=== PATIENT | female | born 1950 | race Caucasian/White ===

== ENCOUNTER 2016-12-07 10:33 | Inpatient (IN) ==
[2016-12-07] MEDS ORDERED: NS 500 ML IV ONE ×2 (11:24→13:36)
--- NOTE | 2016-12-07 11:28 | PROVIDER DOCUMENTATION ---
HPI-General Adult - General Chief Complaint: Stroke-Like Symptoms Stated Complaint: STROKE LIKE SYMPTOMS Time Seen by Provider: 12/07/16 11:13 Source: patient Allergies/Adverse Reactions: Patient Allergies Allergy/AdvReac Type Severity Reaction Status Date / Time doxycycline Allergy Severe hypertensio Verified 12/22/13 18:16 n influenza virus vaccine, Allergy Severe HIVES Verified 12/22/13 18:16 specific [Influenza Virus Vacc,Specific] Penicillins Allergy Severe HIVES; Verified 12/22/13 18:16 DIARRHEA; NAUSEA shellfish derived Allergy Intermediate VOMITING Verified 12/25/13 12:06 Home Medications: Home Medication List Medication Instructions Recorded Confirmed Last Taken Type Hydrocodone/Acetaminophen [Lortab 1 each PO BID PRN 04/03/13 04/18/15 2 Days Ago History 7.5-500 Tablet] Aspirin 325 mg PO DAILY #0 tablet 04/04/13 04/18/15 04/18/15 05:00 Rx Cholecalciferol (Vitamin D3) 1,000 unit PO BID 12/22/13 04/18/15 2 Days Ago History [Vitamin D] Gabapentin 100 mg PO DAILY PRN 12/22/13 04/18/15 04/17/15 21:00 History Insulin Glargine [Lantus] 20 unit SUBQ QHS 04/18/15 04/18/15 04/17/15 21:00 History - History of Present Illness -Gen Adult Nature of Presenting Problems: Pt. is 66 yof that presents with c/o sudden onset of right sided weakness around 0630 this morning. Pt. presents with right sided facial drooping and some slight aphasia. Pt. reports she has a known anyerism at the [place]. Pt. states she hasn't been seen for that in years. Pt. also reporting a severe BYRNE. Family at bedside states that this happened once before and the patient was diagnosed with a complex migraine and bells palsy. Pt. denies any other symptoms. Location of Pain/Injury: reports: head. denies: face, mouth, neck, chest, upper extremity, hand(s), abdomen, back, pelvis, genitalia, lower extremity, feet, upper body, lower body, generalized Pain Radiation: reports: no radiation Quality of Pain: reports: aching. denies: burning, cramping, dull, fullness, indigestion, pressure, sharp, stabbing, tearing, throbbing, tightness Severity: reports: severe Onset/Duration: reports: abrupt, this morning Timing: reports: still present, constant. denies: improving, gone now, resolved prior to arrival, intermittent, changing over time, getting worse Context/Activities at Onset: reports: none. denies: recent emotional stress, recent physical stress, recent trauma history, possible bad food, cold exposure , out of country travel Modifying Factors: improves with: nothing Associated Symptoms: reports: headaches, sensory/motor loss, weakness. denies: anxiety, arm pain, back/neck pain, chest pain, constipation, cough, diaphoresis , diarrhea, dizziness, EENT symptoms, fatigue, fever/chills, genitourinary problems, heartburn, joint pain, loss of appetite, malaise, muscle aches, sinus congestion/drainage, nausea, rash, seizure, shortness of breath, pain with inspiration, swelling/mass in abdomen, syncope, vomiting, trouble walking Similar Symptoms Previously?: No Recently seen or treated by another doctor?: No Review of Systems - Adult - REVIEW OF SYSTEMS - ADULT Constitutional: reports: see HPI. denies: chills, fever, fatique Eyes: reports: see HPI. denies: dry eyes, blurred vision, double vision, redness Ears, Nose, Mouth & Throat: reports: see HPI. denies: ear pain, hearing loss, nose pain, loose teeth, mouth swelling, throat pain, throat swelling Cardiovascular: reports: see HPI. denies: chest pain, irregular heart rate, palpitations, syncope Respiratory: reports: see HPI. denies: chronic cough, cough, dyspnea on exertion, pleurisy, shortness of breath, wheezing Gastrointestinal: reports: see HPI. denies: abdominal pain, hematemesis, constipation, diarrhea, nausea, vomiting Genitourinary: reports: see HPI. denies: dysuria, frequency, hematuria, hesitency, urgency Musculoskeletal: reports: see HPI. denies: bone pain, back pain, joint pain, muscle aches, neck pain Integumentary: reports: see HPI. denies: hives, itching, rash, skin thickening Neurological: reports: see HPI, headache/migraines, other (Right sided weakness) . denies: ataxia, seizure, syncope, tremors Psychiatric: reports: see HPI. denies: anxiety, depression, emotional problems , insomnia, panic attacks, suicidal thoughts Past History - Adult - PAST MEDICAL HISTORY-ADULT Review of Records: reports: Old Records Reviewed, Nursing Assessment Review, Medications Reviewed, Social history reviewed & non-contributory. Cardiovascular: reports: HTN Neurological: reports: Parkinson's Endocrine/Immune: reports: Diabetes Other Conditions: reports: other (chiari malformation of the brain stem) - PRIOR SURGERIES/PROCEDURES Surgical/Procedure History: reports: BTL, back/neck (back surgery) - IMMUNIZATION STATUS Childhood Immunizations: See Nurse Assessment Flu Vaccine: See Nurse Assessment - FAMILY HISTORY Family History: reviewed, not pertinent - SOCIAL HISTORY Smoking: denies Physical Exam-General - PHYSICAL EXAM-ADULT Initial Vital Signs Reviewed: Yes - CONSTITUTIONAL General Appearance: alert, moderate distress, obese. negative: thin, anxious, lethargic, slow to respond, obtunded, combative - EYES Eyes: pink conjunctivae, other (Right pupil sluggish to react). negative: conjuctival exudate, scleral icterus, subconjunctival hemorrhage - HEAD, EARS, NOSE, MOUTH & THROAT HENMT: normocephalic/atraumatic, moist mucous membranes. negative: angioedema, TM obscurred by cerumen, maxillary tenderness - NECK Neck: non-tender, full range of motion, supple, normal inspection. negative: lymphadenopathy, trachial deviation, thyromegaly - RESPIRATORY Respiratory: lungs clear, normal breath sounds. negative: crackles, rales, rhonchi, stridor, wheezing - CARDIOVASCULAR Cardiovascular: regular rate, rhythm, no edema, no JVD, no murmur, tachycardia. negative: extra beats, friction rub, irregularly irregular - GASTROINTESTINAL (ABDOMEN) Abdominal Exam: normal bowel sounds, non tender, soft. negative: distended, guarding, rigid, rebound, tenderness, hernia, mass - LYMPHATIC Lymphatic: no adenopathy. negative: axilla node tender, cervical node tenderness - MUSCULOSKELETAL Back Exam: normal inspection. negative: no CVA tenderness, no vertebral tenderness, ecchymosis, swelling, vertebral tenderness Extremity: normal range of motion, non-tender, normal inspection. negative: deformity, erythema, inflammation, swelling, tenderness Peripheral Pulses: radial (R): 2+, radial (L): 2+ - SKIN Integumentary: normal color, normal turgor, warm/dry. negative: cyanosis, diaphoresis, ecchymosis, erythema, jaundice, mottled, pallor, petechiae, purpura , rash, swelling, tenderness - NEUROLOGIC Neurologic: facial droop, motor weakness. negative: no motor/sensory deficits, aphasia, sensory deficit - PSYCHIATRIC Psych/Mental Status: normal mood/affect, normal thought content, normal thought process, oriented x 3. negative: anxious, paranoid, tearful Progress - PLAN OF CARE/RESULTS Progress/Plan/Lab Results: Vital Signs - 8 hr 12/07/16 10:48 Temperature 98.7 F Pulse Rate 100 H Respiratory Rate 20 Blood Pressure 172/71 O2 Sat by Pulse Oximetry 97 Orders Category Date Time Status Saline Loc NOW Care 12/07/16 11:14 Active HEAD W/O CONTRAST [CT] Stat Exams 12/07/16 11:04 Taken CBC WITH ELECTRONIC DIFF [HEME] Stat Lab 12/07/16 11:14 Uncollected COMPREHENSIVE METABOLIC PANEL [CHEM] Stat Lab 12/07/16 11:14 Uncollected URINALYSIS W/POSS RFLX CULT [URINALYSIS] Stat Lab 12/07/16 11:14 Uncollected Discussed patient with Dr. Gonzáles after she spoke to Dr. Harper regarding the patient. Dr. Gonzáles has evaluated the patient. Result Diagrams: 12/07/16 11:20 12/07/16 11:20 - CT/MRI 1 CT Study: Head CT Results: NAD ([facility]) 2 CT Study: Angiogram, Head CT Results: NAD ([facility]) - CONSULTS/PCP/HOSPITALIST Notification #1 *Consult/PCP/Hospitalist*: Dr. Jones Time Discussed: 14:03 Reason/Comments: Admission Consult Disposition: Will see in ED, Admit Departure - Departure Time of Disposition Decision: 13:42 DIAGNOSIS: Palsy, Weakness, Ischemic stroke Disposition: ADMITTED INPATIENT 09 Certified Medical Emergency: Emergent Condition: Stable Referrals and Follow-Ups: William Johnson MD [Primary Care Provider] - Attestation - Physician/ KARINA Attestation Patient care was provided by Advanced Practice Provider:: Yes Advanced Practice Provider:: Noemi Kc Advanced Practice Provider documentation review:: The Mid-level provider documentation, treatment plan and medical decision making was reviewed by the physician who agrees with all treatment and medical decision making by the MLP. The physician spent face to face time with patient:: Yes Advanced Practice Provider documentation review:: The physician spent face to face time with this patient and agrees with all MLP documentation, treatment, and medical decision making by the MLP. See provider notes for further information.
[2016-12-07 11:36] LABS: MANUAL DIFF NEEDED? NO
[2016-12-07 11:40] LABS: BASO% 0.2 % (0.0-0.8); EOS# 0.01 X1000 (0.0-0.7); EOS% 0.1 % (0.0-10.0); HEMATOCRIT 41.4 % (37.0-47.0); HEMOGLOBIN 13.9 g/dL (12.0-16.0); IMM GRAN# 0.06 X1000 (0.0-0.04); IMM GRAN% 0.3 % (0.0-0.5); LYMPH# 2.83 X1000 (1.2-3.4); LYMPH% 15.2 % (20.5-51.1); MCH 30.4 PG (27-31); MCHC 33.6 g/dL (33-37); MCV 90.6 FL (81-99); MONO# 1.21 X1000 (0.11-0.59); MONO% 6.5 % (1.7-9.3); MPV 11.1 FL (7.4-10.4); NEUT% 77.7 % (42.2-75.2); PLT 366 X1000 (130-400); RBC 4.57 XMIL (4.2-5.4)
[2016-12-07 11:59] LABS: AGAP 13; ALBUMIN 4.3 g/dL (3.5-5.0); ALKALINE PHOSPHATASE 103 U/L (32-104); BUN 8 mg/dL (8-22); CALCIUM 9.7 mg/dL (8.8-10.2); CHLORIDE 99 mmol/L (98-107); COSMO 278; GOT 22 U/L (10-30); GPT 14 U/L (10-36); SODIUM 139 mmol/L (136-145); TCO2 27 mmol/L (25-35); TOTAL BILIRUBIN 0.42 mg/dL (0.20-1.00); TOTAL PROTEIN 8.7 g/dL (6.3-8.3)
--- NOTE | 2016-12-07 12:00 | Diag Imaging Result Document ---
PROCEDURE NAME: HEAD W/O CONTRAST - 12/07/2016 CT BRAIN WITHOUT CONTRAST: COMPARISON: Compared to 12/22/2013. FINDINGS: No parenchymal hemorrhage. No epidural or subdural hematoma. No subarachnoid hemorrhage. No mass identified on this noncontrasted exam. Minimal ventricular prominence similar to the prior exam. No sinus opacification. No air fluid levels. IMPRESSION: No hemorrhage. Negative brain CT without contrast. A preliminary report was given at 11:19 a.m.
--- NOTE | 2016-12-07 12:26 | EKG Report ---
Test Performed on : 12/07/2016 10:40:49 AM Test Reason : AMS Blood Pressure : / mmHG Vent. Rate : 100 BPM Atrial Rate : 100 BPM P-R Int : 156 ms QRS Dur : 078 ms QT Int : 358 ms P-R-T Axes : 052 -22 032 degrees QTc Int : 461 ms Normal sinus rhythm. Possible Left atrial enlargement Left ventricular hypertrophy Abnormal ECG When compared with ECG of 18-APR-2015 15:28, No significant change was found Unconfirmed Result
[2016-12-07 12:27] LABS: INR 0.99; PROTIME 10.4 Seconds (9.2-11.7); PTT 28.2 Seconds (22.0-36.0)
[2016-12-07 12:37] LABS: ALLEN TEST YES; BE 2.6 mmoll (-3.0-3.0); BLOOD TYPE ARTERIAL; DRAW SITE R RADIAL; METHB 1.8 % (0.0-1.5); O2(CT) 16.6 mL/dL (15.0-23.0); PCO2(98.6) 45 mmHg (35-45); PO2(98.6) 66 mmHg (60-100); SAMPLE BLOOD; SAO2 97.3 % (95.0-100.0); THB 12.6 g/dL (11.5-17.4)
[2016-12-07 12:38] LABS: MODALITY ROOM AIR
--- NOTE | 2016-12-07 12:46 | Diag Imaging Result Document ---
PROCEDURE NAME: ANGIOGRAM/HEAD - 12/07/2016 CT ANGIOGRAM BRAIN WITH CONTRAST. TECHNIQUE: MIP images obtained. FINDINGS: There is normal filling of the middle and anterior cerebral arteries. The distal internal carotid arteries are poorly seen. Normal flow in the basilar artery with normal filling of the posterior cerebral arteries. No stenosis. No aneurysm. No other abnormality. No occlusion. IMPRESSION: No stenosis, occlusion, or aneurysm identified. A preliminary report was given at 12:21 p.m. MTDD
--- NOTE | 2016-12-07 12:47 | Diag Imaging Result Document ---
PROCEDURE NAME: CHEST-PORTABLE - 12/07/2016 PORTABLE CHEST X-RAY: COMPARISON: 11/24/2015. FINDINGS: The lungs are normally expanded and clear. Heart size and mediastinal contours are normal. No pneumothorax or pleural effusion. IMPRESSION: Negative exam.
[2016-12-07 13:34] LABS: URINE CULTURE NEEDED? NO; URINE MICRO REVIEW NEEDED? NO; URINE SOURCE CLEAN CATCH
[2016-12-07] MEDS ORDERED: ZOFRAN IV ONE (13:40)
[2016-12-07] MEDS ORDERED: MORPHINE IV ONE (13:40)
[2016-12-07 13:49] LABS: UR AMPHETAMINES QUAL NONE DETECTED (NONE DETECT); UR BARBITUATES QUAL NONE DETECTED (NONE DETECT); UR BENZODIAZEPIN QUAL NONE DETECTED (NONE DETECT); UR CANNABINOIDS QUAL NONE DETECTED (NONE DETECT); UR COCAINE QUAL NONE DETECTED (NONE DETECT); UR METHADONE QUAL NONE DETECTED (NONE DETECT); UR OPIATES QUAL NONE DETECTED (NONE DETECT); UR OXYCODONE QUAL NONE DETECTED (NONE DETECT); UR PCP QUAL NONE DETECTED (NONE DETECT)
[2016-12-07 13:53] LABS: BILIRUBIN URINE NEGATIVE (NEGATIVE); BLOOD URINE NEGATIVE (NEGATIVE); COLOR STRAW; GLUCOSE URINE NEGATIVE (NEGATIVE); LEUKOCYTES URINE NEGATIVE (NEGATIVE); NITRITE URINE NEGATIVE (NEGATIVE); PROTEIN URINE NEGATIVE (NEGATIVE); SP GRAVITY URINE 1.016; TURBIDITY URINE CLEAR (CLEAR); UROBILINOGEN URINE NORMAL (NORMAL)
[2016-12-07 13:55] LABS: UR EPITHELIAL CELLS <10 /HPF (<10); URINE BACTERIA NEGATIVE /HPF; URINE RBC <10 /HPF (<10); URINE WBC <10 /HPF (<10)
[2016-12-07] MEDS ORDERED: ASPIRIN PO STA (14:05)
[2016-12-07 14:33] LABS: HDL 60 mg/dL (45-65); LDL 101 mg/dL; TRIGLYCERIDES 58 mg/dL (35-135); VLDL 12 mg/dL
[2016-12-07 14:34] LABS: HEMOGLOBIN A1C 9.2 % (4.8-6.0)
--- NOTE | 2016-12-07 15:55 | Diag Imaging Result Document ---
PROCEDURE NAME: MRI BRAIN W W/O CONTRAST - 12/07/2016 MRI BRAIN WITH AND WITHOUT. TECHNIQUE: Axial and sagittal images obtained in multiple sequences. These are followed by postcontrasted axial and coronal images. FINDINGS: No recent infarct. No significant microvascular ischemic changes. There are only tiny areas of increased signal on the T2 and FLAIR-weighted images. No distinct mass or midline shift. No enhancing lesion on the postcontrasted images. No hydrocephalus. No epidural or subdural fluid collection. The cerebellum is slightly low lying. No other abnormality. IMPRESSION: 1. No recent infarct. 2. Chiari malformation. A preliminary report was given at 3:20 p.m.
--- NOTE | 2016-12-07 15:58 | Diag Imaging Result Document ---
PROCEDURE NAME: MRA BRAIN W/O CONTRAST - 12/07/2016 MR ANGIOGRAPHY OF THE [place]. MIP IMAGES OBTAINED. FINDINGS: There is normal flow in each distal internal carotid artery. Normal flow in the anterior and middle cerebral arteries bilaterally. Normal flow in the basilar artery with filling of both posterior cerebral arteries. There is a posterior communicating artery on the left. This is a normal variant. No occlusion. No aneurysm. There may be narrowing in the proximal right posterior cerebral artery. No other abnormality. IMPRESSION: 1. No occlusion or aneurysm. 2. Artifact versus stenosis in the proximal right posterior cerebral artery. Preliminary report was given at 3:24 p.m.
--- NOTE | 2016-12-07 16:02 | Diag Imaging Result Document ---
PROCEDURE NAME: MRA NECK W/CONT - 12/07/2016 MR ANGIOGRAPHY OF THE NECK. MIP IMAGES OBTAINED. FINDINGS: There is normal flow in the right common carotid artery. No stenosis. Mild narrowing in the internal carotid artery bulb. Stenosis is less than 40%. Normal flow in the right vertebral artery. There is normal flow in the left common carotid artery. No stenosis. Normal flow in the internal carotid artery. No stenosis. Normal flow in the left vertebral artery. IMPRESSION: Mild stenosis in the proximal right internal carotid artery of less than 40%. A preliminary report was given at 3:29 p.m.
--- NOTE | 2016-12-07 16:45 | HISTORY AND PHYSICAL ---
PRIMARY CARE PROVIDER: Dr. William Johnson. CHIEF COMPLAINT: Right-sided weakness starting at 6:30 this morning. HISTORY OF PRESENT ILLNESS: Ms. Billings is a 66-year-old, female with a history of questionable CVA with right-sided weakness, diabetes mellitus type 2, hypertension, Chiari malformation of the brain stem, Parkinson's and untreated breast cancer. States that she is chronically weak on the right but this time she noticed that she was drawing up on the right, her face was drooping. Ambulance was called. She was brought to the ER where she had a NIH stroke scale or 10. She had right droop, dysarthria and mild expressive aphasia. Currently she is what she feels like is back to her baseline. She is trace weak on the right. She has no dysarthria. She is oriented and follow all commands. There is no asymmetry of the face. She does state that she has a mild headache along the right side of her head. She states she has headaches every day on the right side of her head. She did say that she woke up a few times through the night feeling like her heart was beating hard. She would see white splotches in her visual field which she states has improved and has some mild blurriness in her peripheral vision. It is unknown when she was last seen normal as there was no family at the bedside. She states for the last 2 days she has noticed some dizzy spells, lightheaded spells, feeling like her vision was turning black and she would have a ringing and a roaring in her ears. She states she took her blood pressure this morning and it was in the one-teens. She denies any vomiting but does have some nausea. She has numbness and tingling in her hands and feet. She states that she has had some back pain that will cause drawing up of her feet. Denies fever or chills. PAST MEDICAL HISTORY: CVA with right-sided residual, diabetes mellitus type 2, hypertension, Chiari malformation of the brainstem ,Parkinson's, untreated breast cancer, complex migraines, daily migraines on the right and a history of Valencia's palsy. SURGICAL HISTORY: Tubal ligation and back surgery. SOCIAL HISTORY: Denies tobacco, alcohol or illicit drug use. Lives at home with her and daughter and grandson. FAMILY HISTORY: Father had an FL. Mother had lung cancer. REVIEW OF SYSTEMS: Fourteen point review of systems were complete and all were negative except for those mentioned in the above HPI. ALLERGIES: Doxycycline, the influenza virus, penicillin and shellfish. HOME MEDICATIONS: Aspirin 325 mg p.o. daily. Vitamin D 3 a 1000 units p.o. twice daily. Neurontin 100 mg p.o. daily. Lortab 7.5-500 one tab p.o. twice daily as needed. Lantus 20 units subcutaneous nightly but these medications have not been updated. LABORATORY DATA: White blood cells 18,000, hemoglobin 13, hematocrit 41, platelet count 366,000. INR 0.99, PTT is 28.2. ABGs pH 7.4, pCO2 45, PO2 66, bicarb 26, base excess 2.6, saturation 93%. Lactate 0.5. This is on room air. Sodium 139, potassium 4.0, BUN 8, creatinine 0.5, glucose 139. Hemoglobin A1c is 9.2. Total bilirubin 0.42, AST 22, ALT 14. CK 126. Troponin less than 0.01. Triglycerides 58, total cholesterol 173, LDL 101. Urinalysis negative. Urine drug screen negative. Alcohol level negative. IMAGING: Had a head CT, no hemorrhage. Head CTA no stenosis, occlusion or aneurysm. Chest x-ray negative for any acute findings. EKG normal sinus rhythm. QTc is 461. Rate is 100. MRA of the neck prelim shows mild stenosis with right proximal internal carotid artery about 40%. MRI of the brain, with and without contrast showed no recent infarct and a Chiari malformation on the brainstem. The MRA of the brain showed no occlusion but it was artifact versus stenosis in the proximal right posterior cerebral artery. PHYSICAL EXAMINATION: VITAL SIGNS: Temperature 98.7 degrees, heart rate 88, respiratory rate 14, blood pressure 162/79, O2 saturation 96% on room air. 150 pounds, 5 feet 1 inch tall, BMI 28.3. GENERAL: Hattie Billings is a 66-year-old, female. She is in no acute distress and is currently able answer all questions appropriately. HEENT: Atraumatic, normocephalic. Her pupils were equal and reactive. Her mucous membranes were dry. Extraocular movements were intact. Peripheral vision was blurred. NECK: No JVD or carotid bruits noted. CARDIOVASCULAR: S1, S2. Regular rate and rhythm. No rubs, gallops, or murmurs. ABDOMEN: Soft, nontender, nondistended. Positive bowel sounds x4. PULMONARY: Clear to auscultate. Bilateral breath sounds. No accessory muscle use or work of breathing noted. EXTREMITIES: No edema noted. +2 dorsalis and radial pulses. Right-sided weakness noted about a 4-1/2 out of 5. NEURO: A and O x4. Moves all extremities with right-sided weakness 4-1/2 out of 5. ASSESSMENT AND PLAN: 1. TIA versus cerebrovascular accident versus complex migraine. She already has right-sided weakness prior to arrival as normal for her but on admission she did have some pronator drift on the right. She had a right facial droop. She had dysarthria and some disorientation. Her head CT and CTA did not show any acute abnormalities. Her MRI MRA of the brain, and of the neck also did not show any acute abnormalities. There was only some mild stenosis of the proximal right internal cerebral artery about 40% and there was some artifact versus stenosis in the proximal right posterior cerebral artery. Dr. Kelly has been consulted. Echocardiogram has been ordered. She will be placed on IV fluid hydration given the fact that she has received IV dye and will do frequent neuro checks. She was viewed by Dr. Dakotah Harper via telecommunication assessment and was recommended for her to stay overnight. She has been given aspirin and will be started on aspirin and a statin. 2. History of Chiari malformation. Apparently there is no change in this. 3. History of right chronic migraines. 4. Diabetes mellitus type 2. It is uncontrolled. Her hemoglobin A1c is 9.2. We will do sliding scale insulin, pattern blood glucoses and prior to discharge will do dietary nutritional consult for improving her knowledge of diabetic diet. 5. Hypertension. Will allow for some permissive hypertension to improve her cerebral perfusion. 6. Parkinson's. No obvious signs of tremor: 7. Breast cancer that is untreated. She states that she did not have this treated due to a sick but was seen by Dr. Clayton who recommended chemo and radiation. Dictated by NARCISA Virgen for Sukhjinder Rowe MD cc: NARCISA Virgen MD Brian R. James, MD Eston G. Norwood III, MD
[2016-12-07] MEDS ORDERED: ZOFRAN IV PRN (17:59)
[2016-12-07] MEDS ORDERED: TYLENOL PO ONE (20:11)
[2016-12-07] MEDS: HUMULIN R SUBQ SCH ×2 (20:26→23:56)
[2016-12-07] MEDS ORDERED: ZOCOR PO SCH (21:00)
[2016-12-08] MEDS: HUMULIN R SUBQ SCH ×3 (06:15→16:12)
[2016-12-08 06:39] LABS: MANUAL DIFF NEEDED? NO
[2016-12-08 06:46] LABS: BASO% 0.3 % (0.0-0.8); EOS# 0.06 X1000 (0.0-0.7); EOS% 0.5 % (0.0-10.0); HEMOGLOBIN 12.9 g/dL (12.0-16.0); IMM GRAN# 0.03 X1000 (0.0-0.04); IMM GRAN% 0.3 % (0.0-0.5); LYMPH# 2.41 X1000 (1.2-3.4); LYMPH% 22.1 % (20.5-51.1); MCH 29.8 PG (27-31); MCHC 32.3 g/dL (33-37); MCV 92.4 FL (81-99); MONO# 0.82 X1000 (0.11-0.59); MONO% 7.5 % (1.7-9.3); MPV 10.8 FL (7.4-10.4); NEUT% 69.3 % (42.2-75.2); PLT 322 X1000 (130-400); RBC 4.33 XMIL (4.2-5.4)
[2016-12-08 07:06] LABS: INR 1.06; PROTIME 11.2 Seconds (9.2-11.7)
[2016-12-08 07:09] LABS: AGAP 11; ALBUMIN 3.8 g/dL (3.5-5.0); ALKALINE PHOSPHATASE 90 U/L (32-104); BUN 8 mg/dL (8-22); CALCIUM 8.9 mg/dL (8.8-10.2); CHLORIDE 102 mmol/L (98-107); COSMO 282; GOT 16 U/L (10-30); GPT 10 U/L (10-36); POTASSIUM 4.2 mmol/L (3.5-5.1); SODIUM 141 mmol/L (136-145); TCO2 28 mmol/L (25-35); TOTAL BILIRUBIN 0.78 mg/dL (0.20-1.00); TOTAL PROTEIN 7.1 g/dL (6.3-8.3)
--- NOTE | 2016-12-08 08:02 | ECHO REPORT ---
ORDER DATE: 12/07/2016 INTERPRETING PHYSICIAN: Dr. Jensen CLINICAL INDICATIONS: A 66-year-old with a stroke, hypertension. M-MODE MEASUREMENTS: Right ventricle: 2.0 cm. Left ventricle end diastole: 4.9 cm. Left ventricle end systole: 2.7 cm. Posterior wall: 0.9 cm. Interventricular septum: 1.0 cm. Left atrium: 3.4 cm. Aortic root: 3.4 cm. SUMMARY OF 2-DIMENSIONAL IMAGIN. The left ventricular function is normal. Ejection fraction is estimated at 65%. The chamber is not dilated. 2. The right ventricle is normal. 3. The mitral valve shows some calcification of the annulus. The leaflets open normally. Color flow mapping indicates trace of regurgitation. Pulsed wave Doppler of mitral inflow shows reversal of the E and the A wave. 4. The tissue Doppler of septal and lateral mitral annulus averages 5.5 cm. Pulmonary venous flow is normal. There is impaired left ventricular relaxation. 5. The aortic valve looks normal. Color flow mapping unremarkable. There is no stenosis, no regurgitation. 6. The pulmonic valve looks normal. Color flow mapping unremarkable. 7. The tricuspid valve shows a mild degree of regurgitation. The pulmonary pressure is estimated at 35 mmHg. 8. There is no pericardial effusion, masses, nor thrombus. Clinical correlation recommended. cc: MD Sukhjinder Anderson MD
[2016-12-08] MEDS: NORCO-7.5 PO PRN ×2 (08:03→16:13)
[2016-12-08] MEDS ORDERED: NEURONTIN PO PRN (08:37)
[2016-12-08] MEDS ORDERED: VITAMIN D PO SCH (09:00)
[2016-12-08] MEDS ORDERED: ASPIRIN PO SCH (09:00)
--- NOTE | 2016-12-08 15:06 | CONSULTATION ---
DATE OF CONSULTATION: 12/08/2016 HISTORY OF PRESENT ILLNESS: Ms. Billings is 66 years old and she has had an episode of headache with subjective right-sided weakness and possibly language disturbance. History from the patient is that she was having a global headache for a day or 2 and then she was waked from sleep 2 nights ago with pounding in her chest, more intense headache, "white blotches" in her central vision. She thought her blood pressure might be elevated but reports blood pressure with wrist cuff systolic then only 110s. She rested and continued to have headache. Vision disturbance resolved. She had a sense that she was weaker in the right limbs than the left. She had some trouble finding words but did not have trouble understanding what was said to her. There was never unconsciousness. She presented to the hospital. Blood pressure was elevated. She feels better now. She believes that she may still have a little bit of trouble with word finding and some heaviness in the right limbs but that is not certain. Headache has improved. Vision disturbance resolved. Workup includes CT scan of the head, CT angiogram of the brain, brain MRI, brain MRA, cervical MRA. I have reviewed these reports. There were no definite findings. There were a few very uncertain comments on the MRA but nothing definite. PHYSICAL EXAMINATION: On exam, Ms. Billings is awake, alert, attentive and appropriate. Speech is not dysarthric. Language function is intact on bedside testing on repeating, naming, comprehension, and fluency. She was able to follow written and spoken commands well, including commands which required right/left distinction and digit distinction. Memory seems good. Head and neck are unremarkable. Visual pineda are full tested by confrontational finger counting. Extraocular movements are full. Facial motility is difficult to network director. There is inconsistent asymmetry, sometimes right corner of the mouth pulled to the right and sometimes more relaxed. Forehead wrinkling was equal. Facial sensation is intact. There is no ptosis. Gag is intact. Tongue is midline. Palate is midline. Hearing is good. Shoulder shrug is equal. Strength is normal in the arms and legs. Tone is equal in the limbs. She did well on [id number] testing bilaterally. She reports some patchy loss of pinprick sensation over the right lower leg mostly medial with inconsistent margins and uncertainty on repeated testing. Proprioception is good at the great toe MTP joint bilaterally. I did not test her gait. Reflexes are 1+ at the knees and trace at the ankles bilaterally. Plantar response is silent bilaterally. IMPRESSION/PLAN: Subjective right-sided weakness, history of possible transient communication trouble, headache. All of this was associated with elevated blood pressure. She has a past history of episodic headache, consistent with migraine. This episode may have been migraine or may have been related to her elevated blood pressure or both. Negative imaging is reassuring. I do not see definite clinical evidence now of dominant left hemisphere infarction. I agree with plans to allow her to go home. I encouraged her to be aggressive with management of her risk factors. She will keep follow up with her primary physician, Dr. Johnson , for that. She takes medicine for her blood pressure, diabetes mellitus, and daily aspirin. She does not smoke cigarettes. She believes she has not had elevated cholesterol and we discussed potential role for statin drugs even with normal cholesterol levels. Thanks for asking me to see Ms. Billings. cc: Lila Kelly III, MD MTDD
[2016-12-08 15:12] VITALS: BP 119/47
--- NOTE | 2016-12-08 16:28 | DISCHARGE SUMMARY ---
ADMISSION DATE: 12/07/2016 DISCHARGE DATE: 12/08/2016 ADMISSION DIAGNOSES: 1. Transient ischemic attack versus cerebrovascular accident versus complex migraine. 2. History of Chiari malformation. 3. History of right-sided chronic migraines. 4. Diabetes mellitus type 2 uncontrolled. 5. Hypertension. 6. Parkinson's. 7. Breast cancer that is untreated. DISCHARGE DIAGNOSES: 1. Transient ischemic attack versus complex migraine. Will follow up with Dr. Kelly as outpatient. All imaging reveals no acute findings. Symptoms have resolved. 2. History of Chiari malformation. 3. History of right-sided chronic migraines. 4. Diabetes mellitus type 2 uncontrolled. Will go home with insulin regimen. 5. Hypertension. 6. Parkinson's. 7. Breast cancer that is untreated. CONSULTATIONS: Dr. Kelly will follow up with patient as outpatient. PROCEDURES: None. HOSPITAL COURSE: Ms. Billings is a 66-year-old, female with a history of CVA with right- sided weakness, diabetes mellitus type 2, hypertension, Chiari malformation of the brainstem, Parkinson's and untreated breast cancer. Also a history of daily right-sided migraines. She presented to the ER via EMS when she started having symptoms of right-sided facial droop, dysarthria, confusion and increased weakness on the right side compared to her usual baseline. She was evaluated via telemonitoring by Dr. Dakotah Harper and it was deemed appropriate to admit her overnight. She was given aspirin and a statin, and followed throughout the night. Her symptoms had resolved. There is no dysarthria. Her face was symmetric, still with trace right-sided weakness. She will be discharged with home health and to follow up with Dr. Kelly as outpatient. Imaging did not reveal any acute findings. About 2 days prior to admission she started noticing dizzy spells, lightheaded spells and tinnitus in her ears. She did have some nausea. She does complain of numbness and tingling in her hands and feet although she comes to us with uncontrolled diabetes and hemoglobin A1c of 9. DISCHARGE MEDICATIONS: 1. Lantus 0.4 units/kg. 2. Aspirin 81 mg daily. 3. Lipitor 40 mg nightly. 4. Vitamin D 3000 units p.o. 5. Neurontin 100 mg p.o. daily. DISCHARGE DIET: Regular. VITAL SIGNS ON DISCHARGE: Temperature 98.6 degrees, heart rate 84, respiratory rate 19, blood pressure 130/49, O2 saturation 97% on room air. DISCHARGE LABORATORY DATA: White blood cells 10,000, hemoglobin 12, hematocrit 40, platelet count 322,000. Sodium 141, potassium 4.2, BUN 8, creatinine 0.5, glucose 147, hemoglobin A1c 9.2, total bilirubin 0.78, AST 16, ALT 10, triglycerides 67, total cholesterol 137, LDL 81. Urinalysis negative. Urine drug screen negative. Alcohol negative. IMAGIN. Echocardiogram: EF 65%. There is impaired left ventricular relaxation. Pulmonary artery pressure 35 mmHg. 2. Brain MRA: No occlusion or aneurysm, artifact versus stenosis in the proximal right posterior cerebral artery. 3. Neck MRA: Mild stenosis in the proximal right internal carotid artery of less than 40%. 4. Brain MRI: No recent infarct. Chiari malformation. 5. Chest x-ray negative. 6. Head CTA: No stenosis, occlusion or aneurysm. 7. Head CT: Negative for any acute findings. DISPOSITION: Home with home health. DISCHARGE INSTRUCTIONS: 1. Follow up with Dr. Kelly as an outpatient for evaluation and further workup as needed. Also to seek medical attention if symptoms return. 2. She will continue on her aspirin and statin. 3. She will need also follow up with her primary care provider for her diabetes medication for control. Dictated by NARCISA Virgen for Sukhjinder Rowe MD cc: NARCISA Virgen MD Eston G. Norwood III, MD Brian R. James, MD
[2016-12-08] MEDS ORDERED: LANTUS SUBQ SCH (21:00)
== END 2016-12-08 16:36 | disposition home health service (06) ==
LOC: ED 10:33 → 3N 16:29
PROVIDERS: ATTEND Internal Medicine